=== PATIENT | male | born 1985 | race Caucasian/White ===

== ENCOUNTER 2016-07-05 19:53 | Emergency (ER) | payer BC ==
[2016-07-05 21:41] VITALS: BP 138/81
[2016-07-05] MEDS ORDERED: Sulfamethox/Trimethoprim DS 800/160* TAB PO ONE (21:58)
--- NOTE | 2016-07-05 21:58 | UC ---
Skin Complaint HPI - HPI Summary HPI Summary: irritated skin near each groin began a few days ago after shaving---did not shave for a few days and sore s got better but returned after he shaved again feels irritated and itchy - History of Current Complaint Chief Complaint: UCSkin Time Seen by Provider: 07/05/16 21:43 Stated Complaint: SKIN COMPLAINT(SORES) Hx Obtained From: Patient Onset/Duration: Gradual Onset, Lasting Days, Still Present Skin Exposure Onset/Duration: Days Ago Timing: Constant Onset Severity: Mild Current Severity: Mild Location: Discrete Aggravating: Other - shaving Alleviating: Nothing Associated Signs & Symptoms: Positive: Negative - Allergy/Home Medications Allergies/Adverse Reactions: Allergies Allergy/AdvReac Type Severity Reaction Status Date / Time Penicillins Allergy Rash Verified 07/05/16 21:41 Review of Systems Constitutional: Negative Skin: Other - abrasion open skin with some folliculitis on each side of groin Eyes: Negative ENT: Negative Respiratory: Negative Cardiovascular: Negative Gastrointestinal: Negative Genitourinary: Negative Motor: Negative Neurovascular: Negative Musculoskeletal: Negative Neurological: Negative Psychological: Negative All Other Systems Reviewed And Are Negative: Yes PMH/Surg Hx/FS Hx/Imm Hx Previously Healthy: Yes Other History Of: Negative For: HIV, Hepatitis B, Hepatitis C, Anticoagulant Therapy - Surgical History Surgical History: None - Family History Known Family History: Negative: Cardiac Disease, Hypertension, Diabetes, Renal Disease - Social History Occupation: Employed Full-time Lives: With Family Alcohol Use: Weekly Alcohol Amount: 2 times a week Substance Use Type: Marijuana Substance Use Comment - Amount & Last Used: occasional Smoking Status (MU): Never Smoked Tobacco - Immunization History Most Recent Influenza Vaccination: none Physical Exam Triage Information Reviewed: Yes Appearance: Well-Appearing, No Pain Distress, Well-Nourished Vital Signs: Initial Vital Signs Temp 98.6 F 07/05/16 21:38 Pulse 63 07/05/16 21:38 Resp 14 07/05/16 21:38 BP 138/81 07/05/16 21:38 Pulse Ox 100 07/05/16 21:38 Vital Signs Reviewed: Yes Eye Exam: Normal Eyes: Positive: Conjunctiva Clear ENT Exam: Normal ENT: Positive: Normal ENT inspection, Hearing grossly normal. Negative: Nasal congestion, Nasal drainage, Trismus, Muffled/hoarse voice Dental Exam: Normal Neck exam: Normal Neck: Positive: Supple, Nontender, No Lymphadenopathy Respiratory Exam: Normal Respiratory: Positive: Chest non-tender, No respiratory distress, No accessory muscle use Cardiovascular Exam: Normal Cardiovascular: Positive: RRR, Pulses Normal, Brisk Capillary Refill Musculoskeletal Exam: Normal Musculoskeletal: Positive: Strength Intact, ROM Intact, No Edema Neurological Exam: Normal Neurological: Positive: Alert, Muscle Tone Normal Psychological Exam: Normal Psychological: Positive: Normal Response To Family Skin: Positive: Other - folliculitis and abrasion of skin each groin Course/Dx - Course Course Of Treatment: bactrim , bactroban, avoid shaving gentle soap and water wash - Differential Diagnoses - Skin Complaint Differential Diagnoses: Abscess, Cellulitis, Contact Dermatitis, Eczema, Impetigo, Other - folliculitis - Diagnoses Provider Diagnoses: Folliculitis Discharge - Discharge Plan Condition: Stable Disposition: HOME Prescriptions: Mupirocin 2% CREAM* [Bactroban 2% CREAM*] 1 applic TOPICAL BID #1 tube Sulfamethox/Trimethoprim DS* [Bactrim DS 800/160 TAB*] 1 tab PO BID #13 tab Patient Education Materials: Sulfamethoxazole/Trimethoprim (By mouth), Mupirocin (On the skin), Folliculitis (ED) Referrals: [facility] [place] [facility]ERR[facility] [Outside] - If Needed No Primary Care Phys,NOPCP [Primary Care Provider] -
== END 2016-07-05 22:11 | disposition home or self-care (01) ==
LOC: UCCORT 19:53
DX: L73.8 Other specified follicular disorders (principal); S30.811A Abrasion of abdominal wall, initial encounter; L08.9 Local infection of the skin and subcutaneous tissue, unspecified; W45.8XXA Other foreign body or object entering through skin, initial encounter; Y93.E1 Activity, personal bathing and showering; Z88.0 Allergy status to penicillin
CPT/HCPCS: 99212; A9270-GY; G0463

== ENCOUNTER 2017-10-01 07:45 | Emergency (ER) | payer BC ==
[2017-10-01 07:57] VITALS: BP 134/75
--- NOTE | 2017-10-01 08:29 | RAD ---
INDICATION: Right rib pain COMPARISON: Chest x-ray April 01, 2016 TECHNIQUE: Multiple views of the ribs were obtained. FINDINGS: Bones: There is no evidence of acute rib fracture. LUNGS: The lungs are clear. There is no pneumothorax. Pleural spaces: There is no evidence of hemothorax. Other: None IMPRESSION: NO ACUTE RIB FRACTURE.
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
[2017-10-01] MEDS ORDERED: Ibuprofen TAB* 200 MG PO ONE (08:38)
== END 2017-10-01 08:55 | disposition home or self-care (01) ==
LOC: UCEAST 07:45
DX: S29.9XXA Unspecified injury of thorax, initial encounter (principal); V86.55XA Driver of 3- or 4- wheeled all-terrain vehicle (ATV) injured in nontraffic accident, initial encounter; Y93.89 Activity, other specified; Y92.9 Unspecified place or not applicable; Z88.0 Allergy status to penicillin
CPT/HCPCS: 99212; A9270-GY; G0463

== ENCOUNTER 2017-10-21 12:37 | Emergency (ER) | payer BC ==
[2017-10-21] MEDS ORDERED: Aspirin 81 mg CHEW TAB* 81 MG TAB.CHEW PO ONE (12:54)
[2017-10-21 13:11] VITALS: BP 139/85
--- NOTE | 2017-11-25 09:24 | UC ---
Jonathan Gomez Stephanie, scribed for Glo Ledesma MD on 10/21/17 at 1248 . Cardiac HPI - HPI Summary HPI Summary: The pt is a 31 y/o M presenting to with c/o CP. First episode 10/17/17, last about 45 min. Resolved spontaneously. Possibly another episode over the weekend, andThe pt states his pain lasted 45 min since onset and then spontaneously resolved. Today he began to feel pain at 08:00 which lasted 3 minutes. His pain is intermittent and lasts about 3 minutes in duration. His pain is located on the L anterior chest. Aggravating factors unclear, sometimes worse with movement although not always. Alleviating factors unclear, holds himself still which might help. Denies recent illness other than sinus congestion on Sat. Took 2 dayquil with sinus relief. . He denies nausea and rash. Reports recent ehad cold over the weekend. - History of Current Complaint Stated Complaint: CHEST PAIN Time Seen by Provider: 10/21/17 12:43 Hx Obtained From: Patient Onset/Duration: Sudden Onset, Lasting Days, Still Present Timing: Intermittent Episodes Lasting: - approximately 3 minutes Current Severity: Moderate Chest Pain Location: Left Anterior Character: Sharp/Stabbing Aggravating Factor(s): Movement Alleviating Factor(s): Spontaneous Resolution Associated Signs & Symptoms: Positive: Chest Pain. Negative: Nausea/Vomiting - Allergy/Home Medications Allergies/Adverse Reactions: Allergies Allergy/AdvReac Type Severity Reaction Status Date / Time Penicillins Allergy Rash Verified 10/21/17 13:24 PMH/Surg Hx/FS Hx/Imm Hx Previously Healthy: No - Chronic back pain. Other History Of: Negative For: HIV, Hepatitis B, Hepatitis C, Anticoagulant Therapy - Surgical History Surgical History: None - Family History Known Family History: Negative: Cardiac Disease, Hypertension, Diabetes, Renal Disease - Social History Occupation: Employed Full-time Lives: Alone Alcohol Use: Weekly Alcohol Amount: 2 times a week Substance Use Type: Marijuana Substance Use Comment - Amount & Last Used: occasional Smoking Status (MU): Never Smoked Tobacco Have You Smoked in the Last Year: No - Immunization History Most Recent Influenza Vaccination: none Review of Systems Constitutional: Negative Skin: Negative Eyes: Negative ENT: Negative Respiratory: Negative Cardiovascular: Chest Pain Gastrointestinal: Negative Genitourinary: Negative Motor: Negative Neurovascular: Negative Musculoskeletal: Negative Neurological: Negative Psychological: Negative All Other Systems Reviewed And Are Negative: Yes Physical Exam - Summary Physical Exam Summary: Appearance: Well-Nourished Eye Exam: Normal ENT Exam: Normal Neck: Normal, No adenopathy appreciated Respiratory Exam: Normal, no dyspnea, no tachypnea, normal respiratory rate Chest non-tender, Lungs clear, Normal breath sounds, No respiratory distress, No accessory muscle use Cardiovascular Exam: Normal Cardiovascular: Heart rate regular, good general skin color, good capillary refill RRR, No Murmur, Pulses Normal - sitting up. heart rate correlates w left radial pulse, Brisk Capillary Refill Abdominal Exam: Normal Abdomen Description: Nontender, No Organomegaly, Soft Bowel Sounds: Present Musculoskeletal Exam: Normal Musculoskeletal: Strength Intact Neurological Exam: Normal: nonfocal, grossly intact Psychological Exam: Normal: conversing easily and appropriately Skin Exam: Normal: no visible or reported rash Triage Information Reviewed: Yes Vital Signs Reviewed: Yes Diagnostics - EKG Cardiac Rate: NL - At 12:39, 79 BPM, sinus ST elevation vs early repolarization , MT 177 QTc 40 Re-Evaluation - Re-Evaluation First Eval Re-Evaluation Time: 12:47 Change: Unchanged - The pt declines ambulance for transport and will drive to ED via private vehicle. - Assessment/Plan Course Of Treatment: Exact etiology of chest discomfort is unclear. Strongly encourage go to ED for further evaluation and w/u. Mr. Natarajan carefully considered this, politely but firmly declines. He will f/u pcp, will consider going to the ED later, declines further w/u. AMA reviewed, and signed. Questions as posed answered to the best of my ability. - Clinical Impression Provider Diagnoses: Chest pain, etiology unclear. AMA - Physician Notifications Discussed Patient Care With: Baltazar Castillo Time Discussed With Above Provider: 13:00 Discharge - Sign-Out/Discharge Documenting (check all that apply): Patient Departure - Transfer - Discharge Plan Condition: Stable Disposition: AGAINST MEDICAL ADVICE Patient Education Materials: Chest Pain (ED) Referrals: [facility] [place] [facility]ERR[facility] [Outside] No Primary Care Phys,NOPCP [Primary Care Provider] - Additional Instructions: Please follow up with your primary care provider in 1-2 weeks. Seek medical attention for worse or new problems in the meantime. - Billing Disposition and Condition Condition: STABLE Disposition: Against Medical Advice The documentation as recorded by the Jonathan newman Stephanie accurately reflects the service I personally performed and the decisions made by me, Glo Ledesma MD.
== END 2017-10-21 13:00 | disposition left against medical advice (07) ==
LOC: UCEAST 12:37
DX: R07.89 Other chest pain (principal); M54.9 Dorsalgia, unspecified; Z88.0 Allergy status to penicillin
CPT/HCPCS: 93005; 99212; A9270-GY; G0463

== ENCOUNTER 2017-10-21 13:18 | Emergency (ER) | payer BC ==
[2017-10-21] MEDS ORDERED: Ketorolac INJ* 30 MG/ML 1 ML VIAL IV PUSH ONE (15:31)
[2017-10-21] MEDS ORDERED: Ketorolac INJ* 60 MG/2 ML VIAL IM ONE (15:39)
[2017-10-21 15:58] LABS: ABS Basophils 0 10^3/ul (0-0.2); ABS Eosinophils 0.2 10^3/ul (0-0.6); ABS Lymphocytes 1.7 10^3/ul (1.0-4.8); ABS Monocytes 0.9 10^3/ul (0-0.8); ABS Neutrophils 4.2 10^3/ul (1.5-7.7); ABS Nucleated RBC 0 10^3/ul; Eosinophil % 2.3 % (0-6); Hematocrit 43 % (42-52); Lymphocyte % 24.7 % (25-47); Mean Corpuscular HGB Conc 33 g/dl (31-36); Mean Corpuscular Hemoglobin 28 pg (27-31); Mean Corpuscular Volume 85 fL (80-94); Mean Platelet Volume 8.4 um3 (7.4-10.4); Nucleated Red Blood Cells % 0; Platelet Count 241 10^3/ul (150-450); Red Blood Count 4.99 10^6/ul (4.0-5.4); Red Cell Distribution Width 14 % (10.5-15)
--- NOTE | 2017-10-21 16:09 | RAD ---
HISTORY: Chest pain COMPARISONS: April 01, 2016 VIEWS: 4: Frontal dual-energy and lateral views of the chest. FINDINGS: CARDIOMEDIASTINAL SILHOUETTE: The cardiomediastinal silhouette is normal. ERASTO: The erasto are normal. PLEURA: The costophrenic angles are sharp. No pleural abnormalities are noted. LUNG PARENCHYMA: The lungs are clear. ABDOMEN: The upper abdomen is clear. There is no subphrenic gas. BONES AND SOFT TISSUES: No bone or soft tissue abnormalities are noted. OTHER: None. IMPRESSION: NO ACTIVE CARDIOPULMONARY DISEASE.
[2017-10-21 16:21] LABS: EGFR Non-African American 93.6 (>60)
--- NOTE | 2017-10-21 17:20 | ED ---
Adonis Gomez Angela, scribed for Domenic Baker MD on 10/21/17 at 1541 . HPI Chest Pain - HPI Summary HPI Summary: This pt is a 31 y/o male presenting to [facility] referred by [facility] c/o intermittent left anterior chest pain today. Pt reports his first episode of chest pain was 4 days ago and notes it that lasted 4-5 minutes. He describes it as sharp, stabbing pain. Pt states his chest pain returned today as intermittent sharp pain. He notes he has constant chest pain described achy pain but is only mild. He describes pleuritic chest pain and it is aggravated with deep breathing and movement. Denies nausea, vomiting, fever. Pt denies having these symptoms in the past. No PMHx. - History of Current Complaint Chief Complaint: EDChestWallPain Time Seen by Provider: 10/21/17 15:21 Hx Obtained From: Patient Onset/Duration: Started Days Ago, Still Present Timing: Lasting Days Current Severity: Mild Pain Intensity: 2 Pain Scale Used: 0-10 Numeric Chest Pain Location: Left Anterior Chest Pain Radiates: No Character: Dull/Aching - Constant aching, Sharp/Stabbing - intermittent sharp pain Aggravating Factor(s): Movement, Deep Breaths Alleviating Factor(s): Rest Associated Signs and Symptoms: Positive: Chest Pain. Negative: Shortness of Breath, Fever, Chills, Nausea, Wheezing - Allergy/Home Medications Allergies/Adverse Reactions: Allergies Allergy/AdvReac Type Severity Reaction Status Date / Time Penicillins Allergy Rash Verified 10/21/17 13:24 PMH/Surg Hx/FS Hx/Imm Hx Endocrine/Hematology History: Denies: Hx Anticoagulant Therapy, Hx Diabetes, Hx Thyroid Disease Cardiovascular History: Denies: Hx Congestive Heart Failure, Hx Deep Vein Thrombosis, Hx Hypertension , Hx Myocardial Infarction, Hx Pacemaker/ICD Respiratory History: Denies: Hx Asthma, Hx Chronic Obstructive Pulmonary Disease (COPD), Hx Lung Cancer, Hx Pneumonia, Hx Pulmonary Embolism GI History: Denies: Hx Gall Bladder Disease, Hx Gastrointestinal Bleed, Hx Ulcer, Hx Urosepsis History: Denies: Hx Kidney Stones, Hx Renal Disease Neurological History: Denies: Hx Dementia, Hx Migraine, Hx Seizures, Hx Transient Ischemic Attacks (TIA) Psychiatric History: Denies: Hx Anxiety, Hx Depression, Hx Schizophrenia, Hx Bipolar Disorder - Surgical History Surgery Procedure, Year, and Place: denies Infectious Disease History: No Infectious Disease History: Reports: Hx Shingles Denies: Hx Clostridium Difficile, Hx Hepatitis, Hx Human Immunodeficiency Virus (HIV), Hx of Known/Suspected MRSA, Hx Tuberculosis, Hx Known/Suspected VRE , Hx Known/Suspected VRSA, History Other Infectious Disease, Traveled Outside the [place] in Last 30 Days - Family History Known Family History: Negative: Cardiac Disease, Hypertension, Diabetes, Renal Disease - Social History Alcohol Use: Weekly Alcohol Amount: 2 times a week Substance Use Type: Reports: Marijuana Substance Use Comment - Amount & Last Used: occasional Smoking Status (MU): Never Smoked Tobacco Review of Systems Negative: Fever Eyes: Negative Positive: Chest Pain Negative: Vomiting, Nausea Musculoskeletal: Negative Skin: Negative Neurological: Negative All Other Systems Reviewed And Are Negative: Yes Physical Exam - Summary Physical Exam Summary: VITAL SIGNS: Reviewed. GENERAL: Patient is a well-developed and nourished male who is lying comfortable in the stretcher. Patient is not in any acute respiratory distress. HEAD AND FACE: No signs of trauma. No ecchymosis, hematomas or skull depressions. No sinus tenderness. EYES: PERRLA, EOMI x 2, No injected conjunctiva, no nystagmus. EARS: Hearing grossly intact. Ear canals and tympanic membranes are within normal limits. MOUTH: Oropharynx within normal limits. NECK: Supple, trachea is midline, no adenopathy, no JVD, no carotid bruit, no c- spine tenderness, neck with full ROM. CHEST: Symmetric, reproducible sharp chest pain at palpation. LUNGS: Clear to auscultation bilaterally. No wheezing or crackles. CVS: Regular rate and rhythm, S1 and S2 present, no murmurs or gallops appreciated. ABDOMEN: Soft, non-tender. No signs of distention. No rebound no guarding, and no masses palpated. Bowel sounds are normal. EXTREMITIES: FROM in all major joints, no edema, no cyanosis or clubbing. NEURO: Alert and oriented x 3. No acute neurological deficits. Speech is normal and follows commands. SKIN: Dry and warm Triage Information Reviewed: Yes Vital Signs On Initial Exam: Initial Vitals Temp Pulse Resp BP Pulse Ox 98 F 75 16 127/77 99 10/21/17 13:21 10/21/17 13:21 10/21/17 13:21 10/21/17 13:21 10/21/17 13:21 Vital Signs Reviewed: Yes Diagnostics - Vital Signs Vital Signs Temp Pulse Resp BP Pulse Ox 10/21/17 13:21 98 F 75 16 127/77 99 - Laboratory Lab Results: Lab Results 10/21/17 10/21/17 Range/Units 15:32 15:32 WBC 7.0 (3.5-10.8) 10^3/ul RBC 4.99 (4.0-5.4) 10^6/ul Hgb 14.0 (14.0-18.0) g/dl Hct 43 (42-52) % MCV 85 (80-94) fL MCH 28 (27-31) pg MCHC 33 (31-36) g/dl RDW 14 (10.5-15) % Plt Count 241 (150-450) 10^3/ul MPV 8.4 (7.4-10.4) um3 Neut % (Auto) 60.0 (38-83) % Lymph % (Auto) 24.7 L (25-47) % Tucker % (Auto) 12.4 H (0-7) % Eos % (Auto) 2.3 (0-6) % Baso % (Auto) 0.6 (0-2) % Absolute Neuts (auto) 4.2 (1.5-7.7) 10^3/ul Absolute Lymphs (auto) 1.7 (1.0-4.8) 10^3/ul Absolute Monos (auto) 0.9 H (0-0.8) 10^3/ul Absolute Eos (auto) 0.2 (0-0.6) 10^3/ul Absolute Basos (auto) 0 (0-0.2) 10^3/ul Absolute Nucleated RBC 0 10^3/ul Nucleated RBC % 0 Sodium 139 (139-145) mmol/L Potassium 5.1 H (3.5-5.0) mmol/L Chloride 102 (101-111) mmol/L Carbon Dioxide 29 (22-32) mmol/L Anion Gap 8 (2-11) mmol/L BUN 16 (6-24) mg/dL Creatinine 0.93 (0.67-1.17) mg/dL Est GFR ( Amer) 120.3 (>60) Est GFR (Non-Af Amer) 93.6 (>60) BUN/Creatinine Ratio 17.2 (8-20) Glucose 94 (70-100) mg/dL Calcium 9.7 (8.6-10.3) mg/dL Total Bilirubin 0.40 (0.2-1.0) mg/dL AST 25 (13-39) U/L ALT 22 (7-52) U/L Alkaline Phosphatase 41 (34-104) U/L Troponin I 0.00 (<0.04) ng/mL Total Protein 8.1 (6.4-8.9) g/dL Albumin 4.9 (3.2-5.2) g/dL Globulin 3.2 (2-4) g/dL Albumin/Globulin Ratio 1.5 (1-3) Result Diagrams: 10/21/17 15:32 10/21/17 15:32 Lab Statement: Any lab studies that have been ordered have been reviewed, and results considered in the medical decision making process. - Radiology Chest XR Xray Interpretation: No Acute Changes - IMPRESSION: No active cardiopulmonary disease. Dr. Baker has reviewed this radiology report. Radiology Interpretation Completed By: Radiologist - EKG 14:09 Cardiac Rate: NL - at 60 bpm EKG Rhythm: Sinus Rhythm EKG Interpretation: No ST elevations. Re-Evaluation - Re-Evaluation First Eval Re-Evaluation Time: 16:47 Comment: I reviewed the lab and XR results with the pt. He will be discharged home. Chest Pain Course/Dx - Course Assessment/Plan: This patient is a 31-year-old male who presents to the emergency department with a chief complaint of chest pain. He reports is a sharp chest pain which increases with deep inspirations or moving. Blood test results without any significant abnormality except for potassium of 5.1. Chest x-ray shows no acute pathology. In the ED course the patient was given Toradol for the pain and the pain improved. I discussed all the findings and test results with the patient. Patient was instructed to return to the emergency room immediately if any of the symptoms return or worsens. Plan of care was discussed with the patient and understands and agrees. All questions were answered at patient satisfaction. There were no further complaints or concerns. Lung exam before discharge: CTA B/L. Good air exchange. No wheezing or crackles heard. CVS: S1 and S2 present. No murmurs appreciated. Patient is alert and oriented x 3. Patient is hemodynamically stable. Patient will be discharged home with follow up PCP in the next 2-3 days - Chest Pain Differential Diagnosis/HQI/PQRI: Angina, Chest Wall, Lower Respiratory Infection - Diagnoses Provider Diagnoses: Atypical chest pain Discharge - Sign-Out/Discharge Documenting (check all that apply): Discharge/Admit/Transfer - Discharge - Discharge Plan Condition: Stable Disposition: HOME Patient Education Materials: Chest Pain (ED) Referrals: [facility] [place] [facility] [place] [[place]] No Primary Care Phys,NOPCP [Primary Care Provider] - Additional Instructions: Please follow up with your primary care provider. RETURN TO THE ED FOR ANY NEW OR WORSENING SYMPTOMS. - Billing Disposition and Condition Condition: STABLE Disposition: HOME The documentation as recorded by the Adonis newman Angela accurately reflects the service I personally performed and the decisions made by Samuel suárez Walter, MD.
[2017-10-21 17:34] VITALS: BP 119/89
== END 2017-10-21 17:33 | disposition home or self-care (01) ==
LOC: ED 13:18
DX: R07.89 Other chest pain (principal); Z88.0 Allergy status to penicillin
CPT/HCPCS: 36415; 71046; 80053; 84484; 85025; 93005; 96372; 99284; J1885

== ENCOUNTER 2017-12-15 08:03 | Emergency (ER) | payer BC ==
--- NOTE | 2017-12-15 08:10 | UC ---
Dental HPI - HPI Summary HPI Summary: 32 yo male presents with bump that he noticed in the back of throat last night. He tells me that over the weekend his and children were dx'd with hand, foot, and mouth dz. His 's only symptoms are a mild fever and small bumps in the back of her throat. Pt felt fine, but looked in the back of his throat last night and noticed similar bumps. He is here today concerned about this. Denies fever, chills, sore throat, cough, earache, SOB, chest pain. - History of Current Complaint Stated Complaint: MOUTH COMPLAINT Time Seen by Provider: 12/15/17 08:09 Hx Obtained From: Patient Pain Intensity: 0 Pain Scale Used: 0-10 Numeric - Allergies/Home Medications Allergies/Adverse Reactions: Allergies Allergy/AdvReac Type Severity Reaction Status Date / Time Penicillins Allergy Rash Verified 12/15/17 08:16 PMH/Surg Hx/FS Hx/Imm Hx - Additional Past Medical History Additional PMH: None Previously Healthy: Yes Other History Of: Negative For: HIV, Hepatitis B, Hepatitis C, Anticoagulant Therapy - Surgical History Surgical History: None Surgery Procedure, Year, and Place: denies - Family History Known Family History: Negative: Cardiac Disease, Hypertension, Diabetes, Renal Disease - Social History Occupation: Employed Full-time Lives: With Family Alcohol Use: Weekly Alcohol Amount: 2 times a week Substance Use Type: Marijuana Substance Use Comment - Amount & Last Used: occasional Smoking Status (MU): Never Smoked Tobacco - Immunization History Most Recent Influenza Vaccination: none Review of Systems Constitutional: Negative Skin: Negative Eyes: Negative ENT: Other - throat bumps Respiratory: Negative Cardiovascular: Negative Neurovascular: Negative Neurological: Negative Psychological: Negative All Other Systems Reviewed And Are Negative: Yes Physical Exam - Summary Physical Exam Summary: GENERAL: NAD. WDWN. No pain distress. SKIN: No rashes, sores, lesions, or open wounds. HEENT: Head: AT/NC Eyes: EOM intact. Conjunctiva clear without inflammation or discharge. Ears: Hearing grossly normal. TMs intact, no bulging, erythema, or edema. Nose: Nasal mucosa pink and moist. NTTP maxillary and frontal sinus. Throat: Posterior oropharynx without exudates, erythema, or tonsillar enlargement. Uvula midline. NECK: Supple. Nontender. No lymphadenopathy. CHEST: CTAB. No r/r/w. No accessory muscle use. Breathing comfortably and in no distress. CV: RRR. Without m/r/g. Pulses intact. Brisk cap refill. NEURO: Alert. CN II-XII grossly intact. PSYCH: Age appropriate behavior. Triage Information Reviewed: Yes Vital Signs: Vital Signs: Temp Pulse Resp BP Pulse Ox 101.2 F 60 20 152/86 100 12/15/17 08:10 12/15/17 08:10 12/15/17 08:10 12/15/17 08:10 12/15/17 08:10 Vital Signs Reviewed: Yes Dental Complaint Course/Dx - Course Course Of Treatment: Pt is febrile today, but reports feeling well and has no symptoms. I suspect he may being experiencing a prodrome of hand, foot, mouth dz or some other viral illness. Advised to rest, drink fluids, and take ibuprofen for fever. - Differential Dx/Diagnosis Provider Diagnoses: Viral illness Discharge - Sign-Out/Discharge Documenting (check all that apply): Patient Departure - Discharge Plan Condition: Stable Disposition: HOME Patient Education Materials: Hand, Foot, and Mouth Disease (ED) Referrals: No Primary Care Phys,NOPCP [Primary Care Provider] - Additional Instructions: If you develop a fever, shortness of breath, chest pain, new or worsening symptoms - please call your PCP or go to the ED. Your blood pressure was high at todays visit. Please see your primary provider within 4 weeks for recheck and re-evaluation. - Billing Disposition and Condition Condition: STABLE Disposition: Home
[2017-12-15 08:16] VITALS: BP 152/86
== END 2017-12-15 08:30 | disposition home or self-care (01) ==
LOC: UCEAST 08:03
DX: B34.9 Viral infection, unspecified (principal); R22.0 Localized swelling, mass and lump, head; Z88.0 Allergy status to penicillin
CPT/HCPCS: 99211; G0463

== ENCOUNTER 2018-11-13 19:05 | Emergency (ER) | payer BC ==
[2018-11-13 20:22] VITALS: BP 128/76
--- NOTE | 2018-11-13 20:37 | UC ---
Skin Complaint HPI - HPI Summary HPI Summary: 32 yo male shaved his pubic hairs today now noticing "BUMPS" no pain no dysuria no urethral d/c no hx STDs desires testing for gc and chlamydia - History of Current Complaint Chief Complaint: UCSkin Time Seen by Provider: 11/13/18 20:20 Stated Complaint: PERSONAL Hx Obtained From: Patient Onset Severity: Mild Current Severity: None Pain Intensity: 0 Pain Scale Used: 0-10 Numeric Character: Raised Aggravating Factor(s): Nothing Alleviating Factor(s): Nothing Associated Signs & Symptoms: Positive: Negative - Allergy/Home Medications Allergies/Adverse Reactions: Allergies Allergy/AdvReac Type Severity Reaction Status Date / Time Penicillins Allergy Rash Verified 11/13/18 20:22 sulfamethoxazole Allergy Rash Verified 11/13/18 20:22 [From Bactrim] trimethoprim [From Bactrim] Allergy Rash Verified 11/13/18 20:22 PMH/Surg Hx/FS Hx/Imm Hx Previously Healthy: Yes Other History Of: Negative For: HIV, Hepatitis B, Hepatitis C, Anticoagulant Therapy - Surgical History Surgical History: None Surgery Procedure, Year, and Place: denies - Family History Known Family History: Positive: Non-Contributory Negative: Cardiac Disease, Hypertension, Diabetes, Renal Disease - Social History Alcohol Use: Weekly Alcohol Amount: 2 times a week Substance Use Type: Marijuana Substance Use Comment - Amount & Last Used: occasional Smoking Status (MU): Never Smoked Tobacco - Immunization History Most Recent Influenza Vaccination: none Review of Systems All Other Systems Reviewed And Are Negative: Yes Constitutional: Positive: Negative Skin: Positive: Negative Eyes: Positive: Negative ENT: Positive: Negative Respiratory: Positive: Negative Cardiovascular: Positive: Negative Gastrointestinal: Positive: Negative Genitourinary: Positive: Negative Motor: Positive: Negative Neurovascular: Positive: Negative Musculoskeletal: Positive: Negative Neurological: Positive: Negative Psychological: Positive: Negative Physical Exam Triage Information Reviewed: Yes Appearance: Well-Appearing, No Pain Distress, Well-Nourished Vital Signs: Initial Vital Signs Temp 98.2 F 11/13/18 20:15 Pulse 72 11/13/18 20:15 Resp 16 11/13/18 20:15 BP 128/76 11/13/18 20:15 Pulse Ox 98 11/13/18 20:15 Vital Signs Reviewed: Yes Eyes: Positive: Conjunctiva Clear ENT: Positive: Hearing grossly normal. Negative: Nasal congestion, TMs normal, Muffled voice, Hoarse voice Neck: Positive: Supple, Nontender Respiratory: Positive: Lungs clear, Normal breath sounds, No respiratory distress, No accessory muscle use Cardiovascular: Positive: RRR Male Genital Exam: Positive: Normal Genitalia, Other - the bumps he sees are hair follicles, not red. Negative: Hernia Mass, Inguinal Tenderness, Scrotum Tenderness (R), Scrotum Tenderness (L), Testicular Tenderness (R), Testicular Tenderness (L), Urethral Discharge Musculoskeletal: Positive: ROM Intact, No Edema Neurological: Positive: Alert Psychological Exam: Normal Skin Exam: Normal Course/Dx - Diagnoses Provider Diagnosis: Screening examination for sexually transmitted disease Discharge - Sign-Out/Discharge Documenting (check all that apply): Patient Departure All imaging exams completed and their final reports reviewed: No Studies - Discharge Plan Condition: Stable Disposition: HOME Prescriptions: Mupirocin 2% OINT* [Bactroban 2 % Oint*] 1 applic TOPICAL BID #1 tube Patient Education Materials: Sexually Transmitted Diseases (ED) Referrals: Robert Cota, [facility] [employer]PER [Primary Care Provider] - If Needed Additional Instructions: tests are pending the bumps you are seeing are hair follicles given your hx of MRSA I suggest you not shave that area apply ointmen twice daily for 7 days recheck for pain/redness/fever - Billing Disposition and Condition Condition: STABLE Disposition: Home
[2018-11-16 14:11] LABS: Neisseria gonorrhoeae (GC) RNA Negative (Negative)
== END 2018-11-13 20:43 | disposition home or self-care (01) ==
LOC: UCCORT 19:05
DX: Z11.3 Encounter for screening for infections with a predominantly sexual mode of transmission (principal)
CPT/HCPCS: 87491; 87591; 99212; G0463

== ENCOUNTER 2018-11-25 18:35 | Emergency (ER) | payer BC ==
[2018-11-25 18:58] VITALS: BP 130/66
--- NOTE | 2018-11-25 19:24 | UC ---
UC General HPI - HPI Summary HPI Summary: pt is c/o an episodic itchy rash x 7 months. he saw his pcp who referred him to an supervisor spring up who did nothing. he went to [facility] in [facility] who tx with an antibiotic with no relief. he went back to [facility] and was tx with an allergy pill and refer to dermatology. Dermatology tx for allergy as well. he went to [facility] where he was tx with an antibiotic, allergy pill and told to avoid dairy. he comes here because a relative was dx with scabies. - History of Current Complaint Chief Complaint: UCGeneralIllness Stated Complaint: SKIN ISSUE ITCHING Time Seen by Provider: 11/25/18 19:07 Hx Obtained From: Patient Pain Intensity: 0 - Allergy/Home Medications Allergies/Adverse Reactions: Allergies Allergy/AdvReac Type Severity Reaction Status Date / Time Penicillins Allergy Rash Verified 11/25/18 18:59 sulfamethoxazole Allergy Rash Verified 11/25/18 18:59 [From Bactrim] trimethoprim [From Bactrim] Allergy Rash Verified 11/25/18 18:59 Home Medications: Home Medications NK [No Home Medications Reported] 11/25/18 [History Confirmed 11/25/18] Triamcinolone 0.1% CREAM (NF) [Kenalog 0.1% Cream (NF)] 1 applic TOPICAL BID 08/11 [History Confirmed 11/25/18] PMH/Surg Hx/FS Hx/Imm Hx Previously Healthy: Yes Other History Of: Negative For: HIV, Hepatitis B, Hepatitis C, Anticoagulant Therapy - Surgical History Surgical History: None Surgery Procedure, Year, and Place: denies - Family History Known Family History: Positive: Non-Contributory Negative: Cardiac Disease, Hypertension, Diabetes, Renal Disease - Social History Occupation: Employed Full-time Lives: With Family Alcohol Use: Daily Alcohol Amount: 4 beers Substance Use Type: Marijuana Substance Use Comment - Amount & Last Used: occasional Smoking Status (MU): Never Smoked Tobacco - Immunization History Most Recent Influenza Vaccination: none Review of Systems All Other Systems Reviewed And Are Negative: No Constitutional: Negative: Fever, Chills Skin: Positive: Rash Musculoskeletal: Negative: Arthralgia, Edema Physical Exam Triage Information Reviewed: Yes Appearance: Well-Appearing Vital Signs: Initial Vital Signs Temp 99.1 F 11/25/18 18:55 Pulse 59 11/25/18 18:55 Resp 15 11/25/18 18:55 BP 130/66 11/25/18 18:55 Pulse Ox 100 11/25/18 18:55 Vital Signs Reviewed: Yes Eyes: Positive: Conjunctiva Clear ENT: Positive: Normal ENT inspection Neck: Positive: Supple Respiratory: Positive: No respiratory distress Cardiovascular: Positive: RRR Abdomen Description: Positive: Nontender Musculoskeletal: Positive: ROM Intact Neurological: Positive: Alert Psychological: Positive: Age Appropriate Behavior Skin Exam: Normal, Other - scalp with no infestation. general body exam shows a few scattered pimples which pt identifies as his rash. no burrows or infestations. Course/Dx - Differential Dx - Multi-Symptom Differential Diagnoses: Other - pt states antibiotics included tx for MRSA. I have no concern for scabies. pt advised to stop any prior treatments and to stop seeing multiple different providers at different locations for this. he is to f/u with Dr Menchaca and stick with that practice. this looks most c/w a few minor pimples. no hot tub use. - Diagnoses Provider Diagnosis: Rash Discharge - Sign-Out/Discharge Documenting (check all that apply): Patient Departure All imaging exams completed and their final reports reviewed: No Studies - Discharge Plan Condition: Stable Disposition: HOME Patient Education Materials: Acute Rash (ED) Referrals: Robert Cota, DIRECTOR GOVERNMENT [Primary Care Provider] - If Needed Jose Menchaca MD [Medical Doctor] - As Soon As Possible Additional Instructions: YOU MAY ASK TO BE SEEN IN THE [facility] OFFICE - Billing Disposition and Condition Condition: STABLE Disposition: Home
== END 2018-11-25 19:31 | disposition home or self-care (01) ==
LOC: UCCORT 18:35
DX: R21 Rash and other nonspecific skin eruption (principal)
CPT/HCPCS: 99211; G0463

== ENCOUNTER 2019-02-24 13:26 | Emergency (ER) | payer BC, MEDICAID ==
[2019-02-24 13:41] VITALS: BP 122/73
--- NOTE | 2019-02-24 14:05 | ED ---
Medical Screening - HPI Summary HPI Summary: The patient is 33 yr old male; he requests an HIV test. He feels well otherwise. He states he was sleeping around with different women about a year ago, his mom of HIV several years ago, and he just wants to get checked. He is under the care of a electrician aircraft for folliculitis, and the electrician aircraft told him sometimes people have HIV when they have recurring folliculitis. The patient otherwise states he is in good health and not getting any other infections or feeling ill. - History of Current Complaint Chief Complaint: UCSTDScreening Stated Complaint: PERSONAL Time Seen by Provider: 02/24/19 13:56 PMH/Surg Hx/FS Hx/Imm Hx Endocrine/Hematology History: Denies: Hx Anticoagulant Therapy, Hx Diabetes, Hx Thyroid Disease Cardiovascular History: Denies: Hx Congestive Heart Failure, Hx Deep Vein Thrombosis, Hx Hypertension , Hx Myocardial Infarction, Hx Pacemaker/ICD Respiratory History: Denies: Hx Asthma, Hx Chronic Obstructive Pulmonary Disease (COPD), Hx Lung Cancer, Hx Pneumonia, Hx Pulmonary Embolism GI History: Denies: Hx Gall Bladder Disease, Hx Gastrointestinal Bleed, Hx Ulcer, Hx Urosepsis History: Denies: Hx Kidney Stones, Hx Renal Disease Neurological History: Denies: Hx Dementia, Hx Migraine, Hx Seizures, Hx Transient Ischemic Attacks (TIA) Psychiatric History: Denies: Hx Anxiety, Hx Depression, Hx Schizophrenia, Hx Bipolar Disorder - Surgical History Surgery Procedure, Year, and Place: denies Infectious Disease History: No Infectious Disease History: Reports: Hx Shingles Denies: Hx Clostridium Difficile, Hx Hepatitis, Hx Human Immunodeficiency Virus (HIV), Hx of Known/Suspected MRSA, Hx Tuberculosis, Hx Known/Suspected VRE , Hx Known/Suspected VRSA, History Other Infectious Disease, Traveled Outside the [place] in Last 30 Days - Family History Known Family History: Positive: Non-Contributory Negative: Cardiac Disease, Hypertension, Diabetes, Renal Disease - Social History Occupation: Employed Full-time Alcohol Use: Daily Alcohol Amount: 4 beers Substance Use Type: Reports: Marijuana Substance Use Comment - Amount & Last Used: daily Smoking Status (MU): Never Smoked Tobacco Review of Systems Constitutional: Negative Positive: Other - folliculitis All Other Systems Reviewed And Are Negative: Yes Physical Exam Triage Information Reviewed: Yes Vital Signs On Initial Exam: Initial Vitals Temp Pulse Resp BP Pulse Ox 99.4 F 80 18 122/73 100 02/24/19 13:36 02/24/19 13:36 02/24/19 13:36 02/24/19 13:36 02/24/19 13:36 Vital Signs Reviewed: Yes Appearance: Positive: Well-Appearing, No Pain Distress Skin: Positive: Warm, Skin Color Reflects Adequate Perfusion Head/Face: Positive: Normal Head/Face Inspection Eyes: Positive: EOMI ENT: Positive: Normal ENT inspection Neck: Positive: Nontender Respiratory/Lung Sounds: Positive: Clear to Auscultation, Breath Sounds Present Cardiovascular: Positive: RRR. Negative: Murmur Abdomen Description: Negative: Distended Musculoskeletal: Positive: Strength/ROM Intact Neurological: Positive: Sensory/Motor Intact, Alert, Oriented to Person Place, Time, CN Intact II-III Psychiatric: Positive: Normal - Marybeth Coma Scale Best Eye Response: 4 - Spontaneous Best Motor Response: 6 - Obeys Commands Best Verbal Response: 5 - Oriented Coma Scale Total: 15 Diagnostics - Vital Signs Vital Signs Temp Pulse Resp BP Pulse Ox 02/24/19 13:36 99.4 F 80 18 122/73 100 - Laboratory Lab Statement: Any lab studies that have been ordered have been reviewed, and results considered in the medical decision making process. Course/Dx - Course Course Of Treatment: 33 yr old with request for HIV test. Test sent. FU with PMD. - Diagnoses Provider Diagnoses: Encounter for medical screening examination, Laboratory test Discharge ED - Sign-Out/Discharge Documenting (check all that apply): Patient Departure All imaging exams completed and their final reports reviewed: No Studies - Discharge Plan Condition: Good Disposition: HOME Patient Education Materials: HIV Transmission (ED) Referrals: Robert Cota CAR REPAIRER HELPER [Primary Care Provider] - 2 Days - Billing Disposition and Condition Condition: GOOD Disposition: Home
[2019-02-24 20:27] LABS: HIV 4th Generation Nonreactive (Nonreactive)
== END 2019-02-24 14:19 | disposition home or self-care (01) ==
LOC: UCCORT 13:26
DX: Z13.89 Encounter for screening for other disorder (principal)
CPT/HCPCS: 36415; 87389; 99211; G0463